=== PATIENT | male | born 1980 | race American Indian/Alaskan Native ===

== ENCOUNTER 2018-10-09 18:58 | Emergency (ER) | payer OTHER ==
[~2018-10-09] VITALS: Ht 175.3 cm; Wt 77.1 kg
[2018-10-09 19:03] VITALS: BP 135/81
[2018-10-09] MEDS ORDERED: ZOFRAN ONE (19:40)
[2018-10-09] MEDS ORDERED: NS 1000ML 1,000 ML ONE (19:40)
[2018-10-09 19:41] VITALS: BP 134/82
--- NOTE | 2018-10-09 19:46 | NUR ---
STATUS WENT TO ROOM TO START IV FLUIDS AND GIVE ZOFRAN ORDERED. PATIENT REFUSED MEDICATION. NOTIFIED PHYSICIAN.
--- NOTE | 2018-10-09 19:51 | ER.PDOC ---
General Chief Complaint: Requesting Medical Care Stated Complaint: ALCOHOL WITHDRAWAL TRAVEL OUT OF US: No Time seen by MD: 19:48 Source: patient Exam Limitations: no limitations History of Present Illness Initial Comments Patient has been drinking a lot of alcohol and wants help. He says that he is from [place] and no one is willing to help him there. He comes to the ED with half a bottle of Vodka. Severity: moderate Associated Symptoms: denies symptoms Allergies: Coded Allergies: No Known Allergies (Unverified , 10/09/18) Home Meds No Active Prescriptions or Reported Meds Review of Systems Constitutional: no symptoms reported EENTM: no symptoms reported Respiratory: no symptoms reported Cardiovascular: no symptoms reported Gastrointestinal: nausea All Other Systems: Reviewed and Negative Physical Exam General Appearance: No Apparent Distress, WD/WN Neck: Non-Tender, Full Range of Motion, Supple, Normal Inspection Respiratory: chest non-tender, lungs clear, normal breath sounds, no respiratory distress CVS: reg rate & rhythm, no murmur, no gallop, pulses nml, nml capillary refill Gastrointestinal: Normal Bowel Sounds, No Organomegaly, No Pulsatile Mass, Non Tender Back: Normal Inspection Extremities: Normal Range of Motion Neurologic/Psychiatric: information resources director II-XII NML as Tested Skin: Normal Color Results/Orders Results/Orders Orders - FLORY AVALOS MD 0.9 % Sodium Chloride (Ns 1000ml) (10/09/18 19:40) Ondansetron Hcl (Zofran) (10/09/18 19:40) Comprehensive Metabolic Panel (10/09/18 19:46) Alcohol(Ml) (10/09/18 19:46) Vital Signs Date Time Temp Pulse Resp B/P (MAP) Pulse Ox O2 Delivery O2 Flow Rate FiO2 10/09/18 19:03 98.2 80 18 98.2 10/09/18 19:03 98.2 80 18 93 Room Air 98.2 10/09/18 19:03 98.2 80 18 135/81 (99) 93 Room Air 98.2 Departure Time of Disposition: 20:15 Disposition: 07 ELOPED Impression: Primary Impression: Alcohol intoxication Qualified Codes: F10.929 - Alcohol use, unspecified with intoxication, unspecified Condition: Eloped Referrals: PCP,UNKNOWN (PCP) PRIMARY CARE PROVIDER Scripts No Active Prescriptions or Reported Meds Duration or Time Spent with Pa: 30 mins FLORY AVALOS MD Oct 09, 2018 19:50
--- NOTE | 2018-10-09 19:53 | NUR ---
IV PATIENT REQUESTED TO HAVE IV TAKEN OUT. SPOKE WITH HIM ABOUT GETTING IV FLUID BOLUS OF NS BEFORE HE LEAVES AND HE STILL DOES NOT WANT IT. REMOVED IV PER PATIENT REQUEST AND APPLIED PRESSURE TO SITE. NO FURTHER BLEEDING. COVERED WITH BAND AID.
--- NOTE | 2018-10-09 19:56 | NUR ---
UPDATE PATIENT WAS ON HIS PHONE AND STATES THAT HE DOES HAVE SOMEONE TO COME AND PICK HIM UP.
--- NOTE | 2018-10-09 20:00 | NUR ---
Elopement Pt noted to be off lock master. Upon arrival to room, pt noted to be gone with personal belongings. Notified Security of pt elopement. Dr. Nettles made aware.
[2018-10-09 20:17] LABS: CALCIUM 8.2 mg/dL (8.4-10.5); CARBON DIOXIDE 25.4 mmol/L (20.0-32)
[2018-10-09 20:22] VITALS: BP 134/82
== END 2018-10-09 20:00 | disposition left against medical advice (07) ==
LOC: ER 18:58
DX: F10.229 Alcohol dependence with intoxication, unspecified (principal); Y90.8 Blood alcohol level of 240 mg/100 ml or more
CPT/HCPCS: 36415; 80053; 80307; 99283; J7030; J2405